=== PATIENT | female | born 2000 | race Two or more races ===

== ENCOUNTER 2024-01-20 18:03 | Emergency (ER) | payer MEDICAID, OTHER ==
[~2024-01-20] VITALS: Ht 167.6 cm; Wt 81.0 kg
[2024-01-20 18:50] VITALS: BP 94/55; PULSE 98; RESP 18; TEMP 98.3; O2SAT 98
[2024-01-20] MEDS ORDERED: IBUP1TAB5 PO (20:27)
[2024-01-20] MEDS: IBUPROFEN 800 MG TAB PO ONE (20:54)
== END 2024-01-21 00:58 | disposition home or self-care (01) ==
LOC: ER 18:03
DX: S93.602A Unspecified sprain of left foot, initial encounter (principal); W10.8XXA Fall (on) (from) other stairs and steps, initial encounter; Y93.01 Activity, walking, marching and hiking; Y92.89 Other specified places as the place of occurrence of the external cause; Y99.8 Other external cause status
CPT/HCPCS: 29515; 73630